=== PATIENT | male | born 1955 ===

== ENCOUNTER 2020-05-19 14:06 | Emergency (ER) | payer MEDICAID ==
[~2020-05-19] VITALS: Ht 175.3 cm; Wt 70.5 kg
--- NOTE | 2020-05-19 14:37 | NUR ---
PT CAME IN [place] SHARP CHEST PAIN THAT STARTED ON TUESDAY. "IT FEELS LIKE I HAVE A BROKEN RIB BUT I HAVENT BEEN IN ANY ACCIDENTS OR ANYTHING". PT JAKE CARDIAC HX. EKG COMPLETE. PT RESTING IN [facility]. CONNECTED TO MONITORING EQUIPMENT
[2020-05-19 15:37] LABS: BASOPHILS % (AUTO) 1 % (0-1); EOSINOPHILS % (AUTO) 0 % (1-7); LYMPHOCYTES % (AUTO) 11 % (22-44); MEAN CORPUSCULAR HEMOGLOBIN 30.6 pg (27.5-34.5); MEAN CORPUSCULAR HGB CONC 33.4 g/dL (33.2-36.2); MEAN PLATELET VOLUME 7.2 fL (7.4-10.4); MONOCYTES % (AUTO) 10 % (2-9); NEUTROPHILS % (AUTO) 78 % (42-75); PLATELET COUNT 317 x10^3/uL (130-400); RED BLOOD COUNT 4.56 x10^6/uL (4.38-5.82); RED CELL DISTRIBUTION WIDTH 13.1 % (9.4-14.8)
[2020-05-19 15:38] LABS: MD NO
[2020-05-19 15:39] LABS: ALBUMIN 3.4 g/dL (3.4-5.0); ANION GAP 6 mmol/L (5-15); CALCIUM 8.7 mg/dL (8.5-10.1); CHLORIDE 105 mmol/L (98-107); CREATININE 0.86 mg/dL (0.7-1.3)
--- NOTE | 2020-05-19 15:41 | NUR ---
PT RESTING IN [facility]. AWAITING TEST RESULTS
[2020-05-19] MEDS ORDERED: KETOROLAC 60 MG/2 ML ONE (16:26)
[2020-05-19] MEDS ORDERED: KETOROLAC 30 MG/1 ML IM ONE (16:30)
[2020-05-19 16:31] VITALS: BP 146/90
--- NOTE | 2020-05-19 16:32 | NUR ---
PT MEDICATED PER MAR
--- NOTE | 2020-05-19 17:37 | NUR ---
break rn- dc instructions reviewed
== END 2020-05-19 17:39 | disposition home or self-care (01) ==
LOC: ED 16:30
DX: R07.89 Other chest pain (principal); Z85.828 Personal history of other malignant neoplasm of skin
CPT/HCPCS: 36415; 71046; 80048; 82040; 85025; 93005; 96372; 99285; J1885

== ENCOUNTER 2020-09-02 10:06 | Emergency (ER) | payer MEDICAID ==
[~2020-09-02] VITALS: Ht 177.8 cm; Wt 64.0 kg
--- NOTE | 2020-09-02 10:09 | NUR ---
NO ANSWER FROM LOBBY X1 AT THIS TIME.
[2020-09-02 10:17] VITALS: BP 106/63
--- NOTE | 2020-09-02 11:18 | NUR ---
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
[2020-09-02 11:50] LABS: BASOPHILS % (AUTO) 0 % (0-1); EOSINOPHILS % (AUTO) 0 % (1-7); LYMPHOCYTES % (AUTO) 8 % (22-44); MEAN CORPUSCULAR HEMOGLOBIN 31.6 pg (27.5-34.5); MEAN CORPUSCULAR HGB CONC 34.1 g/dL (33.2-36.2); MEAN PLATELET VOLUME 6.9 fL (7.4-10.4); MONOCYTES % (AUTO) 10 % (2-9); NEUTROPHILS % (AUTO) 81 % (42-75); PLATELET COUNT 181 x10^3/uL (130-400); RED BLOOD COUNT 4.63 x10^6/uL (4.38-5.82); RED CELL DISTRIBUTION WIDTH 13.9 % (9.4-14.8)
[2020-09-02 12:03] LABS: ALANINE AMINOTRANSFERASE 38 U/L (12-78); ALBUMIN 2.9 g/dL (3.4-5.0); ANION GAP 5 mmol/L (5-15); CALCIUM 8.2 mg/dL (8.5-10.1); CHLORIDE 96 mmol/L (98-107); CREATININE 0.77 mg/dL (0.7-1.3)
[2020-09-02 12:05] LABS: ALKALINE PHOSPHATASE 75 U/L (45-117); BILIRUBIN,TOTAL 0.7 mg/dL (0.2-1.0); TOTAL PROTEIN 7.1 g/dL (6.4-8.2)
== END 2020-09-02 12:38 | disposition home or self-care (01) ==
LOC: ED 11:24
DX: U07.1 COVID-19 (principal); J18.9 Pneumonia, unspecified organism; E87.1 Hypo-osmolality and hyponatremia
CPT/HCPCS: 36415; 71045; 80053; 82728; 83615; 85025; 99284; U0003; U0005

== ENCOUNTER 2020-10-14 09:35 | Emergency (ER) | payer MEDICAID ==
[~2020-10-14] VITALS: Ht 177.8 cm; Wt 62.7 kg
[2020-10-14 10:15] VITALS: BP 136/80
--- NOTE | 2020-10-14 11:46 | NUR ---
PT STATES HAS APPOINTMENT AT 12:15 AND MAY LEAVE BEFORE ED EVAL.
== END 2020-10-14 11:53 | disposition left against medical advice (07) ==
LOC: ED 09:50
DX: R43.9 Unspecified disturbances of smell and taste (principal); Z53.21 Procedure and treatment not carried out due to patient leaving prior to being seen by health care provider